=== PATIENT | female | born 1950 | race Caucasian/White ===

== ENCOUNTER 2020-04-22 09:23 | Outpatient (CLI) | payer OTHER, SELFPAY ==
--- NOTE | ~2020-04-22 | MM_ITS ---
EXAMINATION: MM screening [facility] HISTORY: Screening mammogram TECHNIQUE: Craniocaudal and mediolateral oblique 3-D tomosynthesis images were obtained and synthetic 2-D images were generated. CAD analysis was submitted and interpreted. COMPARISON: 11/25/2017, 09/14/2016, 08/15/2015 bilateral digital screening mammogram examinations BREAST PARENCHYMAL COMPOSITION: There are scattered areas of fibroglandular density. FINDINGS: There is no evidence of suspicious mass, calcification, or architectural distortion to sugg est malignancy in either breast. There has been no suspicious interval change. IMPRESSION: 1. No mammographic evidence of malignancy. 2. Recommend routine screening mammography in one year. BI-RADS Category 1: Negative Reviewed, dictated and finalized at location A.
== END 2020-04-22 09:24 | disposition home or self-care (01) ==
PROVIDERS: PCP Internal Medicine; Visit Provider Obstetrics & Gynecology
DX: Z12.31 Encounter for screening mammogram for malignant neoplasm of breast (principal)
CPT/HCPCS: 77063; 77067

== ENCOUNTER 2020-06-07 10:07 | Outpatient (CLI) | payer OTHER, SELFPAY ==
[2020-06-07 10:54] LABS: Anion Gap 8 mmol/L (8-16); Blood Urea Nitrogen 26 mg/dL (7-17); CRP 0.8 mg/dL (<1.0); Calcium 9.4 mg/dL (8.4-10.2); Carbon Dioxide 28 mmol/L (22-30); Chloride 103 mmol/L (98-107); Cholesterol 220 mg/dL (0-200); Estimated Glomerular Filt Rate > 60; Glucose 107 mg/dL (65-105); HDL Direct 34 mg/dL; Potassium 4.6 mmol/L (3.4-5.0); Rheumatoid Factor < 8.6 IU/ML (<12); Sodium 139 mmol/L (137-145); Triglycerides 212 mg/dL (<150)
[2020-06-07 11:03] LABS: LDL Cholesterol Direct 146 mg/dL
[2020-06-07 11:37] LABS: Vitamin D 25 Hydroxy 27.3 ng/mL
== END 2020-06-07 10:08 | disposition home or self-care (01) ==
LOC: ANHLAB 10:08
PROVIDERS: PCP Internal Medicine; Visit Provider Internal Medicine
DX: M19.90 Unspecified osteoarthritis, unspecified site (principal); Z13.6 Encounter for screening for cardiovascular disorders; E78.5 Hyperlipidemia, unspecified; M19.041 Primary osteoarthritis, right hand; M19.042 Primary osteoarthritis, left hand
CPT/HCPCS: 36415; 80048; 80061; 82306; 86140; 86430

== ENCOUNTER 2021-01-12 09:28 | Outpatient (CLI) | payer OTHER, SELFPAY ==
[2021-01-12 10:05] LABS: Anion Gap 6 mmol/L (8-16); Blood Urea Nitrogen 19 mg/dL (7-17); Calcium 9.9 mg/dL (8.4-10.2); Carbon Dioxide 30 mmol/L (22-30); Chloride 107 mmol/L (98-107); Cholesterol 264 mg/dL (0-200); Estimated Glomerular Filt Rate 55; Glucose 121 mg/dL (65-105); HDL Direct 49 mg/dL; Potassium 4.3 mmol/L (3.4-5.0); Sodium 143 mmol/L (137-145); Triglycerides 104 mg/dL (<150)
[2021-01-12 10:15] LABS: LDL Cholesterol Direct 174 mg/dL
[2021-01-12 10:45] LABS: Vitamin D 25 Hydroxy 48.7 ng/mL
== END 2021-01-12 09:29 | disposition home or self-care (01) ==
PROVIDERS: PCP Internal Medicine; Visit Provider Internal Medicine
DX: E78.5 Hyperlipidemia, unspecified (principal); E55.9 Vitamin D deficiency, unspecified; I10 Essential (primary) hypertension
CPT/HCPCS: 36415; 80048; 80061; 82306

== ENCOUNTER 2021-05-19 08:40 | Outpatient (CLI) | payer OTHER, SELFPAY ==
--- NOTE | ~2021-05-19 | MM_ITS ---
EXAMINATION: MM screening [facility] HISTORY: Screening TECHNIQUE: Craniocaudal and mediolateral oblique 3-D tomosynthesis images were obtained and synthetic 2-D images were generated. CAD analysis was submitted and interpreted. COMPARISON: Comparison to multiple prior studies sequentially, with oldest reviewed study dated 07/26. BREAST PARENCHYMAL COMPOSITION: There are scattered areas of fibroglandular density. FINDINGS: There is no evidence of suspicious mass, calcification, or architectural distortion to sugg est malignancy in either breast. There has been no suspicious interval change. IMPRESSION: 1. No mammographic evidence of malignancy. 2. Recommend routine screening mammography in one year. BI-RADS Category 1: Negative Reviewed, dictated and finalized at location A.
== END 2021-05-19 08:41 | disposition home or self-care (01) ==
LOC: ANHIMG 08:42
PROVIDERS: PCP Internal Medicine; Visit Provider Nurse Practitioner
DX: Z12.31 Encounter for screening mammogram for malignant neoplasm of breast (principal)
CPT/HCPCS: 77063; 77067

== ENCOUNTER 2021-08-23 09:43 | Outpatient (CLI) | payer OTHER, SELFPAY ==
[2021-08-23 10:54] LABS: Alanine Aminotransferase 21 U/L (4-35); Albumin Level 4.7 g/dL (3.5-5.1); Alkaline Phosphatase 100 U/L (38-126); Anion Gap 10 mmol/L (8-16); Aspartate Amino Transferase 31 U/L (14-36); Bilirubin,Total 0.8 mg/dL (0.2-1.3); Blood Urea Nitrogen 21 mg/dL (7-17); Carbon Dioxide 26 mmol/L (22-30); Chloride 106 mmol/L (98-107); Cholesterol 255 mg/dL (0-200); Estimated Glomerular Filt Rate 55; Glucose 119 mg/dL (65-110); HDL Direct 46 mg/dL; Potassium 4.4 mmol/L (3.4-5.0); Sodium 142 mmol/L (137-145); Triglycerides 134 mg/dL (<150)
[2021-08-23 11:05] LABS: LDL Cholesterol Direct 161 mg/dL
[2021-08-23 11:39] LABS: Vitamin D 25 Hydroxy 94.3 ng/mL
== END 2021-08-23 09:44 | disposition home or self-care (01) ==
LOC: ANHLAB 09:45
PROVIDERS: PCP Internal Medicine; Visit Provider Nurse Practitioner
DX: E78.5 Hyperlipidemia, unspecified (principal)
CPT/HCPCS: 36415; 80053; 80061; 82306

== ENCOUNTER 2022-03-12 10:03 | Outpatient (CLI) | payer OTHER, SELFPAY ==
[2022-03-12 10:42] LABS: Alanine Aminotransferase 18 U/L (6-35); Albumin Level 4.2 g/dL (3.5-5.1); Alkaline Phosphatase 99 U/L (38-126); Anion Gap 7 mmol/L (8-16); Aspartate Amino Transferase 24 U/L (14-36); Bilirubin,Total 0.6 mg/dL (0.2-1.3); Blood Urea Nitrogen 19 mg/dL (7-17); Calcium 9.2 mg/dL (8.4-10.2); Carbon Dioxide 25 mmol/L (22-30); Chloride 107 mmol/L (98-107); Cholesterol 238 mg/dL (0-200); Estimated Glomerular Filt Rate > 60; Glucose 128 mg/dL (65-110); HDL Direct 45 mg/dL; Sodium 139 mmol/L (137-145); Triglycerides 71 mg/dL (<150)
[2022-03-12 10:53] LABS: LDL Cholesterol Direct 149 mg/dL
[2022-03-12 11:03] LABS: Vitamin D 25 Hydroxy 62.8 ng/mL
[2022-03-12 11:16] LABS: Hemoglobin A1C 6.2 % (<5.7)
== END 2022-03-12 10:04 | disposition home or self-care (01) ==
LOC: ANHLAB 10:05
PROVIDERS: PCP Internal Medicine; Visit Provider Internal Medicine
DX: E78.5 Hyperlipidemia, unspecified (principal); R73.02 Impaired glucose tolerance (oral); Z13.21 Encounter for screening for nutritional disorder
CPT/HCPCS: 36415; 80053; 80061; 82306; 83036

== ENCOUNTER 2022-06-25 08:23 | Outpatient (CLI) | payer OTHER, SELFPAY ==
--- NOTE | ~2022-06-25 | MM_ITS ---
EXAMINATION: MM screening [facility] HISTORY: Screening mammogram TECHNIQUE: Craniocaudal and mediolateral oblique 3-D tomosynthesis images were obtained and synthetic 2-D images were generated. CAD analysis was submitted and interpreted. COMPARISON: 05/19/2021, 04/22/2020 BREAST PARENCHYMAL COMPOSITION: There are scattered areas of fibroglandular density. FINDINGS: There is no suspicious mass, calcification, or architectural distortion to suggest malignan cy in either breast. There has been no suspicious interval change. IMPRESSION: 1. No mammographic evidence of malignancy. 2. Recommend routine screening mammography in one year. BI-RADS Category 1: Negative Reviewed, dictated and finalized at location A.
== END 2022-06-25 08:24 | disposition home or self-care (01) ==
LOC: ANHIMG 08:26
PROVIDERS: PCP Internal Medicine; Visit Provider Nurse Practitioner Obstetrics & Gynecology
DX: Z12.31 Encounter for screening mammogram for malignant neoplasm of breast (principal)
CPT/HCPCS: 77063; 77067

== ENCOUNTER 2022-08-21 11:47 | Outpatient (CLI) | payer OTHER, SELFPAY ==
[2022-08-21 12:12] LABS: Alanine Aminotransferase 22 U/L (6-35); Albumin Level 4.5 g/dL (3.5-5.1); Alkaline Phosphatase 101 U/L (38-126); Anion Gap 15 mmol/L (8-16); Aspartate Amino Transferase 26 U/L (14-36); Bilirubin,Total 0.9 mg/dL (0.2-1.3); Blood Urea Nitrogen 26 mg/dL (7-17); Calcium 9.4 mg/dL (8.4-10.2); Carbon Dioxide 27 mmol/L (22-30); Chloride 101 mmol/L (98-107); Cholesterol 240 mg/dL (0-200); Estimated Glomerular Filt Rate 40; Glucose 117 mg/dL (65-110); HDL Direct 42 mg/dL; Sodium 143 mmol/L (137-145); Triglycerides 150 mg/dL (<150)
[2022-08-21 12:19] LABS: Hemoglobin A1C 6.7 % (<5.7)
[2022-08-21 12:22] LABS: LDL Cholesterol Direct 150 mg/dL
== END 2022-08-21 11:48 | disposition home or self-care (01) ==
LOC: ANHLAB 11:48
PROVIDERS: PCP Internal Medicine; Visit Provider Internal Medicine
DX: E78.5 Hyperlipidemia, unspecified (principal); R73.02 Impaired glucose tolerance (oral)
CPT/HCPCS: 36415; 80053; 80061; 83036

== ENCOUNTER 2022-10-23 11:00 | Outpatient (CLI) | payer OTHER, SELFPAY ==
[2022-10-23 11:25] LABS: Alanine Aminotransferase 20 U/L (6-35); Albumin Level 4.3 g/dL (3.5-5.1); Alkaline Phosphatase 90 U/L (38-126); Aspartate Amino Transferase 23 U/L (14-36); Bilirubin,Total 0.9 mg/dL (0.2-1.3); Cholesterol 170 mg/dL (0-200); HDL Direct 45 mg/dL; Triglycerides 103 mg/dL (<150)
[2022-10-23 11:37] LABS: LDL Cholesterol Direct 87 mg/dL
== END 2022-10-23 11:01 | disposition home or self-care (01) ==
LOC: ANHLAB 11:01
PROVIDERS: PCP Internal Medicine; Visit Provider Internal Medicine
DX: E78.5 Hyperlipidemia, unspecified (principal); Z79.899 Other long term (current) drug therapy
CPT/HCPCS: 36415; 80061; 80076

== ENCOUNTER 2024-01-24 09:41 | Outpatient (CLI) | payer OTHER, SELFPAY ==
--- NOTE | ~2024-01-24 | MM_ITS ---
EXAMINATION: MM screening [facility] HISTORY: Screening mammogram TECHNIQUE: Craniocaudal and mediolateral oblique 3-D tomosynthesis images were obtained and synthetic 2-D images were generated. CAD analysis was submitted and interpreted. COMPARISON: 06/25/2022, 05/19/2021 bilateral screening mammogram examinations BREAST PARENCHYMAL COMPOSITION: There are scattered areas of fibroglandular density. FINDINGS: There is no evidence of suspicious mass, calcification, or architectural distortion to sugg est malignancy in either breast. There has been no suspicious interval change. IMPRESSION: 1. No mammographic evidence of malignancy. 2. Recommend routine screening mammography in one year. BI-RADS Category 1: Negative Reviewed, dictated and finalized at location A.
== END 2024-01-24 09:42 | disposition home or self-care (01) ==
LOC: ANHIMG 09:43
PROVIDERS: PCP Nurse Practitioner Family; Visit Provider Nurse Practitioner Obstetrics & Gynecology
DX: Z12.31 Encounter for screening mammogram for malignant neoplasm of breast (principal)
CPT/HCPCS: 77063; 77067

== ENCOUNTER 2025-01-28 16:17 | Outpatient (CLI) | payer OTHER, SELFPAY ==
--- NOTE | ~2025-01-28 | MM_ITS ---
EXAMINATION: MM screening dorothy BI w lacho HISTORY: Screening TECHNIQUE: Craniocaudal and mediolateral oblique 3-D tomosynthesis images were obtained and synthetic 2-D images were generated. CAD analysis was submitted and interpreted. COMPARISON: Comparison to multiple prior studies sequentially, with oldest reviewed study dated 08/28. BREAST PARENCHYMAL COMPOSITION: Not dense: There are scattered areas of fibroglandular density. FINDINGS: There is no evidence of suspicious mass, calcification, or architectural distortion to sugg est malignancy in either breast. There has been no suspicious interval change. IMPRESSION: 1. No mammographic evidence of malignancy. 2. Recommend routine screening mammography in one year. BI-RADS Category 1: Negative Reviewed, dictated and finalized at location A.
--- OUTSIDE RECORDS SUMMARY | 2025-01-28 16:20 | XMS_ITS | Referral Summary ---
Author Organization [address] [address] Care Team Providers Care Excavator Backhoe Operator Name Role Phone Jimenez Carey MD Primary Care Provider [phone] Kristin Bello NP Unavailable Encounters Date Type Department Care Team Description 12/28/2024 Telephone [facility] Primary Care at [address] [address] Jimenez Carey MD Forms Request 12/27/2024 9:45 AM RETENTION MANAGER Office Visit [facility] Convenient Care at [address] [address] Linda Smith NP Sciatic leg pain (Primary Dx); Elevated blood pressure reading in office with diagnosis of hypertension 12/16/2024 Telephone [facility] Primary Care at [address] [address] Jimenez Carey MD 01/12/[address] Carey cancelled 11/04/2024 Telephone [facility] Gastroenterology at [address] [place] [address] Dennis Uriarte from Last 3 Months Allergies Active Allergy Reactions Criticality Noted Date Comments Erythromycin Palpitations,Nausea & Vomiting Low Penicillins Palpitations Low 04/20/2024 Sulfa Itching Low 04/20/2024 Medications polyethylene glycol (MIRALAX) 17 gram/dose bulk powder Use entire bottle of 255 grams of miralax for Colon prep as directed by office. 8 Active bisacodyl EC (DULCOLAX EC) 5 mg EC tabletIndicatio ns:constipation Take 1 tablet (5 mg total) by mouth daily as needed for constipation 4 tablet [address] (PROTONIX) 20 mg EC tablet Take 1 tablet (20 mg total) by mouth every morning 90 tablet 1 4 Active losartan (COZAAR) 100 mg tablet Take 1 tablet (100 mg total) by mouth daily 90 tablet 1 4 Active hydroCHLOROthia zide (HYDRODIURIL) 25 mg tablet Take 1 tablet (25 mg total) by mouth daily 90 tablet 1 4 Active atorvastatin (LIPITOR) 20 mg tablet Take 1 tablet (20 mg total) by mouth daily 90 tablet 1 4 Active methylPREDNISol one (Medrol, Abisai,) 4 mg DosepackIndicat ions:Sciatic leg pain follow package directions 1 packet 5 Active Active Problems Problem Noted Date Diagnosed Date History of colon polyps 09/08/2024 Screening for colon cancer 09/08/2024 Pessary maintenance 07/15/2024 Assessment & Plan (07/15/2024 12:33 PM CDT): Placed 2 years ago. 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 Overview (07/15/2024): Bradycardia;Recorded Elsewhere: No Location: [facility] Source: EHR Chronic: N Practice ID: [id number] Billable Time: 02:25:30 PM Overweight 07/26/2014 Overview (07/15/2024): Overweight;Recorded Elsewhere: No Location: [facility] Source: EHR Chronic: N Practice ID: [id number] Billable Time: 11:30:00 AM Leukopenia 01/03/2012 Overview (07/15/2024): LEUKOCYTOPENIA NOS;Practice ID: [id number] Microscopic hematuria 01/03/2012 Overview (07/15/2024): HEMATURIA MICROSCOPIC;Practice ID: [id number] Proteinuria 01/03/2012 Overview (07/15/2024): Proteinuria;Practice ID: [id number] Hypertension Assessment & Plan (07/15/2024 12:32 PM CDT): BP increased in office, patient taking HCTZ and Losartan. Home BP's run more in the 128/80's range. Patient to keep home BP log and return this in 1 week. Updated labs ordered also. Hyperlipidemia Assessment & Plan (07/15/2024 12:31 PM CDT): Continues Lipitor, no side effects reported. Updated labs ordered. GERD (gastroesophageal reflux disease) Resolved Problems Problem Noted Date Diagnosed Date Resolved Date Elevated blood-pressure read ing without diagnosis of hypertension 12/17/2017 07/15/2024 Overview (07/15/2024): Elevated blood-pressure reading, without diagnosis of hypertension;Recorded Elsewhere: No Location: [facility] Source: EHR Chronic: N Practice ID: [id number] Billable Time: 10:15:00 AM Overweight with body mass in dex (BMI) 25.0-29.9 12/17/2017 07/15/2024 Overview (07/15/2024): Body mass index (BMI) 29.0-29.9, adult;Recorded Elsewhere: No Location: [facility] Source: EHR Chronic: N Practice ID: [id number] Billable Time: 10:15:00 AM Urinary tract infectious disease 01/03/2012 07/15/2024 Overview (07/15/2024): Urinary Tract Infection;Recorded Elsewhere: No Location: [facility] Source: EHR Chronic: N Practice ID: [id number] Billable Time: 03:41:00 PM Immunizations Immunization Administration Dates Next Due Hep B Vaccine 06/10/2013,01/07/2013,12/05/2012 Influenza, Quad, Adjuvantate d, Intramuscular 08/27/2022,08/29/2021 Influenza, Quadrivalent, Raina l Culture-based MDCK, Antibiotic Free, Intramuscular 08/06/2019 Influenza, Quadrivalent, Hig h Dose, Preservative Free, Intrr 10/27/2020 Influenza, Quadrivalent, Spl it, Preservative Free, Intramuscular 08/08/2023,07/17/2018,08/01/2017 Influenza, Trivalent, High D ose, Split, Preservative Free, Intramuscular 06/17/2024 Influenza, Trivalent, IM (MDV) 08/31/2015,2012,01/07/2013 Influenza, Trivalent, Preser vative Free, Intramuscular 09/02/2016 RSV Vaccine, Pref, Recombina nt, Subunit, Adjuvanted, PF, IM (Arexvy) 06/17/2024 Tdap 04/02/2023 ZOSTER Recombinant 06/17/2024 Social History Tobacco Use Types Packs/Day Years Used Date Smoking Tobacco: Former Cigarettes Smokeless Tobacco: Never Tobacco Cessation:Counseling Given: Not Answered AUDIT-C Answer Date Recorded Q1: How often do you have a drink containing alc ohol? Never 07/15/2024 Average Number of Drinks Not on file 024 Frequency of Binge Drinking Not on file 06/28 PHQ-2 Answer Date Recorded PHQ-2 Total Score (If total score is 3 or more points, staff should administer the PHQ-9) 0 07/15/2024 Comments Unknown Sex and Gender Information Value Date Recorded Sex Assigned at Not on file Legal Sex Female 5:54 AM RETENTION MANAGER Gender Identity Not on file Sexual Orientation Not on file Last Filed Vital Signs Vital Sign Reading Time Taken Comments Blood Pressure 180/78 12/27/2024 9:47 AM RETENTION MANAGER Pulse 76 12/27/2024 9:47 AM RETENTION MANAGER Temperature 36.6 C (97.9 F) 12/27/2024 9:47 AM RETENTION MANAGER Respiratory Rate 16 12/27/2024 9:47 AM RETENTION MANAGER Oxygen Saturation 94% 12/27/2024 9:47 AM RETENTION MANAGER Inhaled Oxygen Concentration - - Weight 75.3 kg (166 lb) 12/27/2024 9:47 AM RETENTION MANAGER Height 165.1 cm (5' 5 ) 12/27/2024 9:47 AM RETENTION MANAGER Body Mass Index 27.62 12/27/2024 9:47 AM RETENTION MANAGER Plan of Treatment Not on file Procedures Procedure Name Priority Date/Time Associated Diagnosis Comments HEPATITIS C ANTIBODY Routine 07/15/2024 4:00 PM CDT Encounter for hepatitis C screening test for low risk patient COLONOSCOPY Routine 03/20/2018 9:14 AM CDT from Last 3 Months or Most Recently Relevant to Health Maintenance Results * Hepatitis C antibody Blood (07/15/2024 4:00 PM CDT) Hep C Ab Nonreactive Nonreactive Comment: Interpretive Data Nonreactive: Antibodies to HCV not detected. Does NOT exclude the possibility of recent exposure to HCV. Equivocal: Equivocal for HCV antibodies. Supplemental molecular testing will be automatically performed to determine infection status in accordance with current CDC screening recommendations. Reactive: Positive for HCV antibodies. This may represent current or past HCV infection. Supplemental molecular testing will be automatically performed to determine current infection status in accordance with current CDC screening recommendations. Interpretive data was last revised on 2020. Blood 07/15/2024 4:00 PM CDT 07/15/2024 8:14 PM CDT Kristin Bello NP LAB MICROBIOLOGY - GENERAL ORDER TULIO Final Result [facility] [address] [place] [address] * COLONOSCOPY (03/20/2018 9:14 AM CDT) Historical Provider HEALTH MAINTENANCE Final Result from Last 3 Months or Most Recently Relevant to Health Maintenance Insurance [facility] [employer] [facility] Care Teams Excavator Backhoe Operator Relationship Specialty Start Date End Date Jimenez Carey MD [address] [facility] [address] [place] [address] PCP - General Family Medicine 07/15/24 Kristin Bello NP [address] [place] [address] Nurse Practitioner Family Medicine 07/15/[address] [facility] 07/15/24
--- OUTSIDE RECORDS SUMMARY | 2025-01-28 16:20 | XMS_ITS | Encounter Summary ---
Author Organization [facility] Healthcare Address [address] [place] [address] Care Team Providers Care Gear Cutter Name Role Phone Jimenez Carey MD Primary Care Provider [phone] Kristin Bello NP Unavailable Reason for Visit * Reason Onset Date Comments Forms Request 12/28/2024 Encounter Details Date Type Department Care Team (Late st Contact Info) Description 12/28/2024 Telephone [facility] Primary Care at [address] [address] Jimenez Carey MD [address] [place] [address] [address] [place] [address] Forms Request Social History Tobacco Use Types Packs/Day Years Used Date Smoking Tobacco: Former Cigarettes Smokeless Tobacco: Never AUDIT-C Answer Date Recorded Q1: How often [...] on file Legal Sex Female 5:54 AM INVENTORY ANALYST Gender Identity Not on file Sexual Orientation Not on file documented as of this encounter Miscellaneous Notes * Telephone Encounter - Minda Crespo - 12/28/2024 10:08 AM CST Forms Request Form requested: Other Form Form Name: Work notes/return to work notes Date needed: 12/30/24 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 Patient How to return form to patient:pickup at practice Additional Comments: Patient seen at convenient care on Saturday12/27/24 and diagnosed with Sciatica pain . Wanting to know if Dr. Carey can give her a work note? Patient is feeling better, however it is still slightly painful and she is wanting to take an additional day off. Needing work note to return 12/31 if possible. Patient will also reach out to convenient care Does message need to be routed? Yes-Action Needed NTORY ANALYST documented in this encounter Plan of Treatment Not on file documented as of this encounter Visit Diagnoses Not on filedocumented in this encounter Care Teams Gear Cutter Relationship Specialty Start Date End Date Jimenez Carey MD [address] [place] [address] PCP - General Family Medicine 07/15/24 Kristin Bello NP [address] [place] [address] Nurse Practitioner Family Medicine 07/15/24 [facility] 07/15/24 documented as of this encounter
--- OUTSIDE RECORDS SUMMARY | 2025-01-28 16:20 | XMS_ITS | Clinical Summary ---
Author Organization [facility] [address] Address [address] [place] [address] Care Team Providers Care Client Success Specialist Name Role Phone Jimenez Carey MD Primary Care Provider [phone] Kristin Bello NP Unavailable Allergies Active Allergy Reactions Criticality Noted Date [...] 2 years ago. 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 Overview (07/15/2024): Bradycardia;Recorded Elsewhere: No Location: [facility] Source: EHR Chronic: N Practice ID: [id number] Billable Time: 02:25:30 PM Overweight 07/26/2014 Overview (07/15/2024): Overweight;Recorded Elsewhere: No Location: [facility] Source: EHR Chronic: N Practice ID: [id number] [...] without diagnosis of hypertension;Recorded Elsewhere: No Location: [facility] Source: EHR Chronic: N Practice ID: [id number] Billable Time: 10:15:00 AM Overweight with body mass in dex (BMI) 25.0-29.9 12/17/2017 07/15/2024 Overview (07/15/2024): Body mass index (BMI) 29.0-29.9, adult;Recorded Elsewhere: No Location: [facility] Source: EHR Chronic: N Practice ID: 0001 Billable Time: 10:15:00 AM Urinary tract infectious disease 01/03/2012 07/15/2024 Overview (07/15/2024): Urinary Tract Infection;Recorded Elsewhere: No Location: [facility] Source: EHR Chronic: N Practice ID: [id number] Billable Time: 03:41:00 PM Encounters Date Type Department Care Team Description 12/28/2024 Telephone [facility] Primary Care at [address] [address] Jimenez Carey MD Forms Request 12/27/2024 9:45 AM FORENSIC DOCUMENT EXAMINER Office Visit [facility] Convenient Care at [address] [address] Linda Smith NP Sciatic leg pain (Primary Dx); Elevated blood pressure reading in office with diagnosis of hypertension 12/16/2024 Telephone [facility] Primary Care at [address] [address] Jimenez Carey MD 01/12/[address] Carey cancelled 11/04/2024 Telephone [facility] Gastroenterology at [address] [place] [address] Dennis Uriarte from Last 3 Months Immunizations Immunization Administration Dates Next Due Hep [...] (Arexvy) 06/17/2024 Tdap 04/02/2023 ZOSTER Recombinant 06/17/2024 Surgical History Surgery Date Site/Laterality Comments CHOLECYSTECTOMY 08/2023 Medical History Medical History Date Comments Hypertension Hyperlipidemia GERD (gastroesophageal reflux disease) Colon polyps Elevated blood-pressure read ing without diagnosis of hypertension 12/17/2017 Elevated blood-pressure read ing, without diagnosis of hypertension;Recorded Elsewhere: No Location: [facility] Source: EHR Chronic: N Practice ID: [id number] Billable Time: 10:15:00 AM Family History Medical History Relation Name Comments Esophageal cancer Brother Stomach cancer Brother Heart disease Father Diabetes Maternal Grandmother Heart disease Mother Relation Name Status Comments Brother Father Maternal Grandmother Mother Social History Tobacco Use Types Packs/Day Years [...] on file Legal Sex Female 5:54 AM FORENSIC DOCUMENT EXAMINER Gender Identity Not on file Sexual Orientation Not on file Obstetrics History Last Filed Vital Signs Vital Sign Reading Time Taken Comments Blood Pressure 180/78 12/27/2024 9:47 AM FORENSIC DOCUMENT EXAMINER Pulse 76 12/27/2024 9:47 AM FORENSIC DOCUMENT EXAMINER Temperature 36.6 C (97.9 F) 12/27/2024 9:47 AM FORENSIC DOCUMENT EXAMINER Respiratory Rate 16 12/27/2024 9:47 AM FORENSIC DOCUMENT EXAMINER Oxygen Saturation 94% 12/27/2024 9:47 AM FORENSIC DOCUMENT EXAMINER Inhaled Oxygen Concentration - - Weight 75.3 kg (166 lb) 12/27/2024 9:47 AM FORENSIC DOCUMENT EXAMINER Height 165.1 cm (5' 5 ) 12/27/2024 9:47 AM FORENSIC DOCUMENT EXAMINER Body Mass Index 27.62 12/27/2024 9:47 AM FORENSIC DOCUMENT EXAMINER Plan of Treatment Health Maintenance Due Date Last Done Comments Pneumococcal vaccine 65+ (1 of 1 - PCV) 2001 Well Visit 65+ 2016 Covid-19 Vaccine (2023-2 5 season) 2024 11/01/2022, 02/03/2022, 09/01/2021, Additional history exists Zoster Vaccine (2 of 2) 08/12/2024 06/17/2024 Breast Cancer Screening-Mammogram 12/26/2024 024 Depression Screening 07/15/2025 07/15/2024 Fall Risk Assessment 07/15/2025 07/15/2024 Osteoporosis Screening-Bone Density Scan 07/09/2026 07/09/2024 Colon Cancer Screening-Colonoscopy 07/15/20292018, 03/20/2018 DTaP/Tdap/Td Vaccine (2 - Td or Tdap) 04/02/2033 04/02/2023 Hepatitis B Screening Completed 06/10/2013 , 01/07/2013, 12/05/2012 Influenza Vaccine Completed 06/17/2024, , 08/27/2022, Additional history exists Hepatitis C Screening Completed 07/15/2024 Procedures Procedure Name Priority Date/Time Associated Diagnosis Comments HEPATITIS C ANTIBODY Routine 07/15/2024 4:00 PM CDT Encounter for hepatitis C screening test for low risk patient HM COLONOSCOPY Routine 03/20/2018 9:14 AM CDT from [...] MICROBIOLOGY - GENERAL ORDER TULIO Final Result [facility] [address] [place] [address] * HM COLONOSCOPY (03/20/2018 9:14 AM CDT) Historical Provider HEALTH MAINTENANCE Final Result from Last 3 Months or Most Recently Relevant to Health Maintenance Insurance [facility] [employer] [facility] [employer] Care Teams Client Success Specialist Relationship Specialty Start Date End Date Jimenez Carey MD [address] [facility] [address] [place] [address] PCP - General Family Medicine 07/15/24 Kristin Bello NP [address] [facility] [address] [place] [address] Nurse Practitioner Family Medicine 07/15/24 [facility] 07/15/24
--- OUTSIDE RECORDS SUMMARY | 2025-01-28 16:20 | XMS_ITS | Clinical Summary ---
Author Organization [facility] Address [address] [place], [address] [address] Phone Care Team Providers Care Wet Machine Cutter Name Role Phone Martin Fong MD Primary Care Provider [phone] Jane Asif MD Unavailable [phone] Medications polyethylene glycol (MIRALAX) Powder Use entire bottle of 255 grams of miralax for Colon prep as directed by office. 255 g 01/13/2018 Active Social History Tobacco Use Types Packs/Day Years Used Date Smoking Tobacco: Never Assessed Comments Unknown Sex and Gender Information Value Date Recorded Sex Assigned at Not on file Legal Sex Female 7:35 PM CDT Gender Identity Not on file Sexual Orientation Not on file Plan of Treatment Health Maintenance Due Date Last Done Comments DEXA Bone Density 1950 Hepatitis C Virus (HCV) Screening 1950 TdaP Immunization 1950 Cologuard 2001 Immunochemical Fecal Occult Blood 2001 Mammogram 2001 Pneumococcal Immunization (5 0+ years) (1 of 1 - PCV) 2001 Zoster Immunization (1 of 2) 2001 Influenza Immunization (#1) 2024 SARS-COV-2 Immunization (1 - 2023- season) 2024 Respiratory Syncytial Virus (RSV) Immunization (Adult) (1 - 1-dose 75+ series) 2026 Colonoscopy 03/20/2028 03/20/2018 Colorectal Cancer Screening 03/20/2028 03/20/2018 Hepatitis B Immunization Aged Out No longer eligible based on patient's age to complete this topic Meningococcal Immunization (ACWY) Aged Out No longer eligible based on patient's age to complete this topic Rotavirus Immunization Aged Out No lo nger eligible based on patient's age to complete this topic Procedures Procedure Name Priority Date/Time Associated Diagnosis Comments HM COLONOSCOPY Routine 03/20/2018 from Last 3 Months or Most Recently Relevant to Health Maintenance Results * HM COLONOSCOPY (03/20/2018) Nahun Alexis DO PROCEDURE/MINOR SURGICAL ORDERA BLES Final Result from Last 3 Months or Most Recently Relevant to Health Maintenance Care Teams Wet Machine Cutter Relationship Specialty Start Date End Date Martin Fong MD [address] [place] [address] PCP - General Internal Medicine 01/01/18 Jane Asif MD [address] [place] [address] Family Medicine 01/01/18
--- OUTSIDE RECORDS SUMMARY | 2025-01-28 16:20 | XMS_ITS | Data Portability ---
Author Organization 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 Patient will come back in a year unless there are new symptoms. Not available 11/27/2024 10:22:30 Plan of Treatment Reminders Order Date Submit Date Provider Last Modified By Organization Details Last Modified Time Details Appointments PESSARY 2024 01:00P M OVIDIO BLEDSOE NP Not available Not available Not available Lab None recorded. Referral None recorded. Procedures None recorded. Surgeries None recorded. Imaging MAMMO, screening , bilateral 2023 [address] [facility], [address], [address], [place], [address], 09/17/2024 10:39:05 Medication Orders None recorded. Patient TargetsNo targets recorded. Patient InstructionsNo instructions recorded. Reason for Referral None Reported. Problems Name Problem SNOMED Code Status Onset Date Resolution Date Notes Provider Name and Address Organization Details Recorded Time Urinary tract infectio us disease 64342001 Completed 201106/03/2021 Urinary Tract Infectio n;Record ed Elsewher e: No [facility] EHR [facility]er braxton: N Practi ce ID: 0001 Crow lable Time: 03:41:00 PM Lakshmi Gorman null, [facility] 1 09:49:11 Adult health examinat ion Completed 201106/03/2021 Routine Medical Exam;Rec orded Elsewher e: No [facility]: EHR [employer] braxton: N Eloyti ce ID: 0001 Crow lable Time: 09:30:00 AM Lakshmi benton, [facility] 1 09:48:31 Speciali zed medical examinat ion Completed 201106/03/2021 Gynecolo gical Examinat ion;Ken rded Elsewher e: No Locat ion: [facility] S ource: EHR [employer]berry Grower braxton: N Eloyti ce ID: 0001 Crow lable Time: 09:30:00 AM Lakshmi Yanestz chetan, [facility] 1 09:49:08 Screenin g for malignan t neoplasm of cervix Completed 201206/03/2021 Screenin g for malignan t neoplasm s of the cervix;R ecorded Elsewher e: No [facility]ce: EHR [employer] braxton: N Eloyti ce ID: 0001 Crow lable Time: 11:30:00 AM Lakshmi benton, [facility] 1 09:48:[address] Concept Completed 201706/03/2021 Encntr for obstetrician and gynaecologist exam (general ) (routine ) w/o abn findings ;Recorde d Elsewher e: No Locat ion: [facility] S ource: EHR [employer]berry [employer]er braxton: N Eloyti ce ID: 0001 Crow lable Time: 10:15:00 AM Lakshmi benton, [facility] 1 09:49:06 Screenin g for osteopor osis Completed 201306/03/2021 Special screenin g for osteopor osis;Rec orded Elsewher e: No Locat ion: [facility] S ource: EHR [employer] braxton: N Eloyti ce ID: 0001 Crow lable Time: 10:28:49 AM Lakshmi benton, [facility] 09:49:02 Body mass index 25-29 - overwe ht [id number] Completed 201706/03/2021 Body mass index (BMI) 29.0-29. 9, adult;Re corded Elsewher e: No [facility] N Practi ce ID: 0001 Crow lable Time: 10:15:00 AM Lakshmi Gorman [facility], [facility] 09:48:[address] Concept Completed 201706/03/2021 Encntr for general adult medical exam w/o abnormal findings ;Recorde d Elsewher e: No [facility] N Eloyti ce ID: 0001 Crow lable Time: 10:15:00 AM Lakshmi benton, [facility] 09:49:04 Screenin g for malignan t neoplasm of rectum Completed 201206/03/2021 Screenin g for malignan t neoplasm s of the rectum;P ractice ID: 0001 Lakshmi Gorman chetan, [facility] 09:49:00 [facility] ht [id number] Completed 201306/03/2021 [facility] ht;Recor ded Elsewher e: No [facility]ce: EHR [employer] braxton: N Practi ce ID: 0001 Crow lable Time: 11:30:00 AM Lakshmi Gorman chetan, [facility] 09:48:54 Conducti on disorder of the heart [id number] Completed 201306/03/2021 Bradycar karena;Ken rded Elsewher e: No Locat ion: [facility] S ource: EHR [employer] braxton: N Practi ce ID: 0001 Crow lable Time: 02:25:30 PM Lakshmi Gorman chetan, [facility] 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 09:48:48 Leukopen ia [id number] Completed 201106/03/2021 LEUKOCYT OPENIA NOS;Prac nicolle ID: 0001 Lakshmi Gorman null, [facility] 09:48:50 Proteinu marino [id number] Completed 201106/03/2021 Proteinu marino;Prac nicolle ID: 0001 Lakshmivarinder Gorman chetan, [facility] 09:48:56 Microsco pic hematuri a [id number] Completed 201106/03/2021 HEMATURI A MICROSCO PIC;Prac nicolle ID: 0001 Lakshmi Gorman null, [facility] 09:48:52 Cystocel e [id number] Active 2020 Dottie Marcos RASHI- [address], [place], [address], [facility] 2 15:06:34 Problem Notes None recorded. Procedures Surgical History Date Name Laterality Status Provider Name and Address Organization Details Recorded Time 024 Date of Last Mammogram completed Esthela Wolff [facility] 11/30/2024 17:26:35 024 Pessary Check completed TIESHA SANTANA MD [address], [place], [address], [facility] 05/04/2024 10:16:29 024 Pessary Check completed Dottie Marcos [facility] [address], [place], [address], [facility] 11/29/2023 10:16:16 023 Cholecystectomy completed Tamika Jorgensen [facility] 11/29/2023 10:01:38 023 Pessary Check completed Dottie Marcos [facility] [address], [place], [address], [facility] 06/04/2023 14:18:15 023 Pessary Check completed Dottie Marcos [facility] [address], [place], [address], [facility] 11/07/2022 14:13:30 022 Pessary Check completed Dottie Marcos [facility] [address], [place], [address], [facility] 07/30/2022 11:09:19 022 Pessary Check completed Dottie Marcos [facility] [address], [place], [address], [facility] 05/02/2022 11:05:50 022 Pessary Check completed Dottie Marcos [facility] [address], [place], [address], [facility] 01/31/2022 15:10:34 021 Pessary Check completed Dottie Marcos [facility] [address], [place], [address], [facility] 06/03/2021 12:12:22 021 Pessary Insertion completed Dottie Marcos RASHI- [address], [place], [address], [facility] 05/12/2021 15:08:43 020 Date of Last Pap Smear completed Lakshmivarinder Gorman [facility] 06/02/2021 17:34:15 018 Date of Last Colonoscopy completed [facility] 06/04/2023 14:00:27 018 completed [facility] 06/04/2023 14:00:27 017 Most Recent Bone Density completed [facility] 06/21/2021 12:30:04 011 biopsy of breast completed Lakshmivarinder Gorman [facility] 06/06/2021 15:11:22 007 Colonoscopy completed [facility] 04/04/2020 16:23:55 Colonoscopy completed [facility] 06/21/2021 12:30:09 Imaging Results None recorded. Procedure Notes None recorded. Medical Equipment None Reported. Allergies Allergen ID Allergen Name Allergen Category Reaction Reaction Severity Criticality Documentation Date Start Date Code Code System Note Provider Name and Address Organization Details Recorded Time 911 Product containin g penicilli n (product) medicatio n Not available Not available Not available 04/04/[address] [facility] 0 16:20:59 912 Substance with sulfonami de structure and antibacte rial mechanism of action (substanc e) medicatio n Not available Not available Not available 04/04/2020 09696 8003 SNOMED Buffy Arcadia [facility] 0 16:21:05 Medications Name Sig Start Date Stop Date Status Note LastModified by Organization Details LastModified Time cyclobenz aprine 10 mg tablet TAKE 1 TABLET BY MOUTH TWICE DAILY NEEDED FOR MUSCLE SPASM 01/31 completed Not Available Not Available Not Available atorvasta tin 20 mg tablet TAKE 1 TABLET BY MOUTH DAILY active Not Available Not Available No t Available hydrocodo ne 5 mg-acetam inophen 325 mg tablet 05/04 completed Not Available Not Available Not Available amlodipin e 5 mg tablet TAKE 1 TABLET BY MOUTH DAILY 11/30 completed Not Available Not Available Not Available pantopraz ole 20 mg tablet,de layed release TAKE 1 TABLET BY MOUTH EVERY MORNING active Not Available Not Available No t Available ciproflox acin 0.3 % eye drops 06/04 completed Not Available Not Available Not Available hydrochlo rothiazid e 25 mg tablet TAKE 1 TABLET BY MOUTH DAILY active Not Available Not Available No t Available Vitamin D2 1,250 mcg (50,000 unit) capsule take 1 capsule by oral route every week 2017 active Prescrib ed Elsewher e: No Locat ion: [facility] M odify By: debbie mason DateTime : 01/18/20 18 03:20:57 PM Not Available Not Available Not Available losartan 100 mg tablet TAKE 1 TABLET BY MOUTH DAILY active Not Available Not Available No t Available nitrofura ntoin monohydra te/macroc rystals 100 mg capsule take 1 capsule (100MG) by oral route every 12 hours with food 11/30 completed Not Available Not Available Not Available ibuprofen 05/12 completed Not Available Not Available Not Available Vitamin D-3 with Aloe 05/12 completed Not Available Not Available Not Available GaviLyte- G 236 gram-22.7 4 gram-6.74 gram-5.86 gram oral solution MIX AND DRINK 4000 ML BY MOUTH ONCE FOR 1 DOSE 11/30 completed Not Available Not Available Not Available Vitals Date Recorded Body height Body mass index (BMI) Body weight Provider Name and Address Organization Details Last Updated DateTime 11/07/2022 161.93 cm 32.1 kg/m2 87142.74 g Tamika Jorgensen [facility] 11/07/2022 13:58:28 Date Recorded Systolic blood pressure Diastolic blood pressure Provider Name and Address Organization Details Last Updated DateTime 11/07/2022 122 mm[Hg] 78 mm[Hg] Dottie Marcos, [facility] [address], [place], [address], [facility] 11/07/2022 14:11:27 Date Recorded Body height Body mass index (BMI) Body weight Provider Name and Address Organization Details Last Updated DateTime 06/04/2023 161.93 cm 32.3 kg/m2 11579.77 g Esthela Wolff [facility] 06/04/2023 14:00:10 Date Recorded Systolic blood pressure Diastolic blood pressure Provider Name and Address Organization Details Last Updated DateTime 06/04/2023 128 mm[Hg] 72 mm[Hg] Dottie Marcos, [facility] [address], [place], [address], [facility] 06/04/2023 14:17:00 Date Recorded Body height Body mass index (BMI) Body weight Systolic blood pressure Diastolic blood pressure Provider Name and Address Organization Details Last Updated DateTime 11/29/2023 161.93 cm 30.4 kg/m2 96669.26 g 164 mm[Hg] 79 mm[Hg] Tamika Jorgensen [facility] 10:01:08 Date Recorded Body height Body mass index (BMI) Body weight Systolic blood pressure Diastolic blood pressure Provider Name and Address Organization Details Last Updated DateTime 05/04/2024 161.93 cm 28.6 kg/m2 08836.46 g 158 mm[Hg] 77 mm[Hg] Gi Mitchell [facility] 09:51:59 Date Recorded Body height Body mass index (BMI) Body weight Systolic blood pressure Diastolic blood pressure Provider Name and Address Organization Details Last Updated DateTime 11/30/2024 161.93 cm 30.4 kg/m2 52894.26 g 173 mm[Hg] 76 mm[Hg] Esthela Wolff [facility] 17:26:24 Social History Question Answer Notes LastModified by Organizat ion Details LastModified Time Tobacco Smoking Status Never Smoker Esther benton, [facility] 06/04/2023 13:46:14 Do You Have An Advance Directive? No Information n ot available 05/12/2021 What Is Your Level Of Alcohol Consumption? Occasional Information not available 07/30/2022 Are You Blind Or Do You Have Difficulty Seeing? No Information n ot available 05/12/2021 What Is Your Level Of Caffeine Consumption? Moderate Information not available 09/19/2021 How Much Tobacco Do You Chew? None Information not available 05/12/2021 In The 14 Days Before Symptom Onset, Have You Had Close Contact With A Laboratory-confirm ed COVID-19 While That Case Was Ill? No Information n ot available 05/12/2021 In The 14 Days Before Symptom Onset, Have You Had Close Contact With A Person Who Is Under Investigation For COVID-19 While That Person Was Ill? No Information not available 05/12/2021 Have You Been To An Area Known To Be High Risk For COVID-19? No Information not available 05/12/2021 Are You Deaf Or Do You Have Serious Difficulty Hearing? No Information not available 05/12/2021 What Type Of Diet Are You Following? STEVENGAN [email or web address] Information n ot available 11/27/2024 What Is The Highest Grade Or Level Of School You Have Completed Or The Highest Degree You Have Received? 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 No Information not available 05/12/2021 Do You Use Protection During Sex? No Information not available 05/12/2021 Do You Use Your Seat Belt Or Car Seat Routinely? Yes Information not available 05/12/2021 Do You Have Smoke And Carbon Monoxide Detectors In Your Home? Yes Information not available 05/12/2021 How Much Tobacco Do You Smoke? No Information not available 05/12/2021 Do You Feel Stressed (tense, Restless, Nervous, Or Anxious, Or Unable To Sleep At Night)? [id number] Information not available 05/12/2021 Do You Use Any Illicit Or Recreational Drugs? No Information not available 05/12/2021 Do You Use Sunscreen Routinely? No Information not available 05/12/2021 Have You Used IV Drugs? No Information not available 05/12/2021 Sex: Unknown Functional Status Question Answer Note LastModified by Organizat ion Details LastModified Time Do you have difficulty walking or climbing stairs? No Information not available 06/04/2023 Are you able to walk? YESWOREST Information not available 05/12/2021 Are you able to care for yourself? Yes Information not available 06/04/2023 Do you have difficulty dressing or bathing? No Information not available 06/04/2023 What is your exercise level? Moderate Information not available 05/12/2021 Mental Status None recorded. Family History Relationship Description Onset Age of this Age Resolved Age Notes LastModified by Organization Details LastModified Time Maternal Grandmother Diabetes mellitus [email or web address] Not available 04/04 16:21:33 Mother Disorder of coronary artery [email or web address] Not available 2024 17:02:40 Mother Congestive heart failure [email or web address] Not available 2024 17:02:40 Paternal Grandfather Cerebrovascu lar accident [email or web address] Not available 16:22:41 Father Congestive heart failure [email or web address] Not available 2024 17:02:40 Medical History Condition Response Allergies (Food, seasonal, environmental ) N Other N Breast Cancer N Drug/Latex Allergies/Reactions N Blood Transfusion N Dermatologic Disorders N Lung Disease N Defects or Inherited Disease N Breast Problem Y Gestational Diabetes N Hematologic disorders N Anesthesia Complications N History of STI N Deep Vein Thrombosis N Polycystic ovary syndrome N Anxiety Disorder N Autoimmune disease N Arthritis N Infertility N Polyps N Acid Reflux (GERD) Y History of abnormal pap N Cancer N Stroke N Varicosities N Neurologic/Epilepsy N Endometriosis N High Cholesterol Y Headaches N Fibromyalgia N Kidney Disease N Heart Problems N Kidney or Bladder Problems N Thyroid Problems N GI Problems N Eating Disorder N Anemia N Art (IVF or FET) N Psychiatric Illness N Ovarian Cancer N Diabetes N Pulmonary (TB, Asthma) N Hepatitis/Liver Disease N No Past Medical History N Eczema N Urinary Tract Infection N Abuse/Domestic Violence N Asthma N Trauma/Violence N Depression/ depression N Heart Disease N Pre-Eclampsia Y Hypertension Y Osteoporosis Y Thrombophilias N Gynecological History Statement/Question Response Abnormal Pap N Date of Last Mammogram 06/28/2024 On BCP's at Conception? N N STIs/STDs N HPV Vaccine N Current Control Method None Age at First Child 48 If Post Menopausal, Age at Menopause 56 Date of Last Colonoscopy 04/06/2018 Most Recent Bone Density 04/11/2017 Sexually Active? N Age of first menstrual cycle 14 Date of Last Pap Smear 04/05/2020 Sexual Problems? N LMP Unknown 04/06/2018 N Obstetrics History GPAL:G 2 P 2 0 0 2 Type Value Full Term 2 Living 2 Total 2 Past Encounters Encounter ID Performer Location Encounter Start Date Encounter Closed Date Diagnosis/Indication Diagnosis SNOMED-CT Code Diagnosis ICD10 Code Diagnosis Note [id number] [address] 04/05/2020 10:57:34 04/05/2020 17:00:20 Gynecologic examination 35332113 Z01.419 We reviewed current pap guidelines and she agrees and is aware no pap done today. No pap needed since >65. Last MMG 10/2017, order given. Colonoscop y 2018 wt one benign polyp per report [id number] Dottie Marcos , [facility] [address] [address] 05/12/2021 09:39:14 05/12/2021 15:24:56 Cystocele 489374639 N81.10 Fitted for pessary today after discussing options for grade-1 cystocele. We agreed pessary non-surgic al option would be good place to start. Reviewed pessary function, insertion procedure with understand ing reviewed.R ing #4 with support placed today.Tole rated it well.Immed iate improvemen t in urine stream after device was placed.Not feeling that pressure or bulge after device placed.Lon y happy.Will call if any issues.We will order your device.You will return for f/u once your device has arrived.No other questions. Time spent in visit is a total of 32 mins with at least 50% of visit consisting of counseling and review of plan of care. Additional precaution minor measures were taken to minimize potential exposure to the Covid-19 virus during this patient s visit, including available hand rn corrections upon arrive, temperatur e check and being asked a series of screening questions. All staff wore face coverings during this encounter, as well as provided additional cleaning and sanitizing of all surfaces, including countertop s, pens, chairs, door handles, light switches, etc, prior to and following the patient s visit. [id number] [facility] [address],[facility] [place] [address] 06/03/2021 09:30:22 06/04/2021 16:20:44 Midline cystocele [id number] N81.11 see procedure notesPessa ry placedRTO at [facility] or [facility] for cleaning & check up. [id number] Dottie Mar[address] [facility] [address],[facility] [place] [address] 06/21/2021 12:02:08 06/21/2021 14:14:42 Gynecologic examination 14499389 Z01.419 Take Calcium with Vitamin D 12-1500mg daily. Do monthly self breast exams. It is advised to get annual flu shot in the fall and she could obtain at [facility] or [facility] care clinic. If you haven't received the Tdap vaccine in the last 10 years you should obtain one as well. Have mammogram yearly, bone density every 2-3 years and colonoscop y every 5-10 years depending on findings and history. Engage in daily exercise of low impact aerobic exercise 45-60 minutes 4-5 times weekly. Avoid tobacco and illicit drugs as well as using moderation with alcohol intake less than 1-2 8 oz beverages daily. This lifestyle behavior pattern will lead to less health conditions and longer life span. If BMI greater than 25 weight watchers or dietary consult advised. Questions have been answered. Patient appears to understand instructio ns, but if you have any further questions call or respond to this email Mammo done wnlPap/hpv d/c per asccp unless otherwise indicated. Dexa ordered Postmenopa usal osteopenia [id number] M85.80 Pessary care 229658489 Z 46.89 Pessary removed, cleaned & reinserted .No issues with this device.Nikky andrew was wnlRTO x 3mos for next cleaning.C an decide if wants to learn to remove/kathleen nsert herself. [id number] [facility] [address] [address] 09/19/2021 11:36:08 09/19/2021 14:58:13 Midline cystocele 598446702 N81.11 Today we refitted for pessary (#5 Ring with support).S he will return this coming saturday @ 10am for reassessme nt.Her #4 pessary was returned to her cleaned & packaged in bio bag to take home with her.Told her to bring this one back on saturday just in case we do not procceed with a larger size.We reviewed some positions that she could attempt to remove pessary if needed.Can demo this at next OV. Time spent in visit is a total of 15 mins with at least 50% of visit consisting of counseling and review of plan of care.Addit ional precaution minor measures were taken to minimize potential exposure to the Covid-19 virus during this patient s visit, including available hand rn corrections upon arrive, temperatur e check and being asked a series of screening questions. All staff wore face coverings during this encounter, as well as provided additional cleaning and sanitizing of all surfaces, including countertop s, pens, chairs, door handles, light switches, etc, prior to and following the patient s visit. [id number] [facility] [address] [address] 09/25/2021 10:42:22 09/25/2021 11:39:16 Midline cystocele [id number] N81.11 Has decided to return to pessary #4 ring with support.Th e size #5 was not painful but she felt it's presence more & did not experience this with her previous device.We cleaned & reinserted #4 pessary that she brought.Sh e will f/u x 3mos for pessary cleaning.O ffer to send referral urogyn moving forward if needed Time spent in visit is a total of 15 mins with at least 50% of visit consisting of counseling and review of plan of care.Addit ional precaution minor measures were taken to minimize potential exposure to the Covid-19 virus during this patient s visit, including available hand rn corrections upon arrive, temperatur e check and being asked a series of screening questions. All staff wore face coverings during this encounter, as well as provided additional cleaning and sanitizing of all surfaces, including countertop s, pens, chairs, door handles, light switches, etc, prior to and following the patient s visit. [id number] [address] [facility] [address],[place] [address] 01/31/2022 14:20:21 01/31/2022 15:13:17 Cystocele [id number] N81.10 Pessary removed and cleaned today with iodine (see procedure notes)Exam wnlRTO x 3mos pessary cleaning Time spent in visit is a total of 15 mins with at least 50% of visit consisting of counseling and review of plan of care. Additional precaution minor measures were taken to minimize potential exposure to the Covid-19 virus during this patient s visit, including available hand rn corrections upon arrive, temperatur e check and being asked a series of screening questions. All staff wore face coverings during this encounter, as well as provided additional cleaning and sanitizing of all surfaces, including countertop s, pens, chairs, door handles, light switches, etc, prior to and following the patient s visit. [id number] Dottie Marcos [facility] [address],[place] [address] 05/02/2022 10:26:32 05/02/2022 11:14:59 Prolapse of female genital organs [id number] N81.9 Doing well.No issues.See pessary procedure notesRTO x 3mos WWE/Pessar y cleaning. [id number] Dottie Marcos [facility] [address],[place] [address] 07/30/2022 10:44:46 07/30/2022 12:42:25 Gynecologic examination [id number] Z01.419 Take Calcium with Vitamin D 12-1500mg daily. Do monthly self breast exams. It is advised to get annual flu shot in the fall and she could obtain at [facility] or [facility]. If you haven't received the Tdap vaccine in the last 10 years you should obtain one as well. Have mammogram yearly, bone density every 2-3 years and colonoscop y every 5-10 years depending on findings and history. Engage in daily exercise of low impact aerobic exercise 45-60 minutes 4-5 times weekly. Avoid tobacco and illicit drugs as well as using moderation with alcohol intake less than 1-2 8 oz beverages daily. This lifestyle behavior pattern will lead to less health conditions and longer life span. If BMI greater than 25 weight watchers or dietary consult advised. Questions have been answered. Patient appears to understand instructio ns, but if you have any further questions call or respond to this email Pap/hpv USPSTF recommends against screening for cervical cancer in women older than 65yo, those who've had a hysterecto my for non-cancer indication s, & who have had adequate prior screening & are not otherwise at high risk for cervical cancer. STD Screen declined, not SA Genetic Screen discussed Colon Screen UTD PCP Dexa Screen Declined Routine Labs PCPMammo ordered Cystocele [id number] N81. 10 Pessary cleaning 4mos [id number] Dottie Marcos [facility] [address],[place] [address] 11/07/2022 13:45:03 11/07/2022 14:14:52 Prolapse of female genital organs [id number] N81.9 Doing well.No issues.See pessary procedure notesRTO x 3-6mos WWE/Pessar y cleaning or prn [id number] Dottie Marcos [facility] [address],[place] [address] 06/04/2023 13:43:17 06/04/2023 14:21:07 Prolapse of female genital organs [id number] N81.9 Doing well.No issues.See pessary procedure notesRTO x 6mos WWE/Pessar y cleaning or prn [id number] MOE [facility] [address],[place] [address] 11/29/2023 09:46:33 11/29/2023 10:19:03 Prolapse of female genital organs [id number] N81.9 Doing well.No issues.See pessary procedure notesRTO x 6mos/Pessa ry cleaning or prnMammo screening scheduled/ order faxed Screening mammography 24 [id number] Z12.31 faxed [id number] TIESHA SANTANA MD [facility] [address],[place] [address] 05/04/2024 09:39:12 05/04/2024 10:36:02 Prolapse of female genital organs [id number] N81.9 - pessary: displaced vertically , removed without issue; vagina normal appearing, replaced without issue- discussed q6 month pessary checks/riley anings- patient reports good support [id number] OVIDIO BLEDSOE NP [facility] [address],[place] [address] 11/30/2024 17:02:29 11/30/2024 17:54:16 Prolapse of female genital organs [id number] N81.9 Removed pessary without issue; vagina normal appearing, replaced without issuePatie nt to RTO q6 month for pessary checks/riley aningsPati ent reports good support Health Concerns Section Related Observation LastModified by Organization Detai ls LastModified Time None Recorded Concern Status LastModified by Organization Details LastModified Time None Recorded Advance Directives Directive N: Payers Encounter Date Sequence Insurance Name Policy Number Policy Leon Covered Member ID Leon Member ID Guarantor Name 11/07/2022 1 [employer] [id number] Marcella Haile [id number] Marcella Haile 06/04/2023 1 [employer] [id number] Marcella Haile [id number] Marcella Haile 11/29/2023 1 [employer] [id number] Marcella Haile [id number] Marcella Haile 05/04/2024 1 [employer] [id number] Marcella Haile [id number] Marcella Haile 11/30/2024 1 [facility] [employer] (PP[employer]) [id number] Marcella Haile [id number] Marcella Haile Notes Date Note Type Note Provider Name and Address Organization Details Recorded Time 11/07/2022 text/html Here today for pessary check & cleaning. Dottie Marcos [facility] [address], [place], [address], [facility] 11/07/2022 14:14:19 06/04/2023 text/html Here today for 6mos pessary cleaning. Dottie Marcos [facility] [address], [place], [address], [facility] 06/04/2023 14:19:05 11/29/2023 text/html Here today for 6mos pessary cleaning and exam. Dottie Marcos [facility] [address], [place], [address], [facility] 11/29/2023 10:18:45 05/04/2024 text/html Patient presents for pessary check. Patient has ring with support, #4. Reports she can no longer feel her pessary after lifting heavy boxes at work; last check and cleaning 11/29/23. No bleeding or abnormal vaginal discharge. No issues with bowel movements. Some feelings of incomplete emptying. TIESHA SANTANA MD [address], [place], [address], [facility] 05/04/2024 10:18:52 11/30/2024 text/html Patient here for pessary removal and cleaning. Patient has difficulty removing pessary herself to clean. Denies concerns with pessary, and rarely will feel device except when bearing down. OVIDIO BLEDSOE NP [address], [place], [address], [facility] 11/30/2024 17:50:29 OBGyn Episode Ob Episode Information Episode Created Date Number of Fetuses Patient Bloodtype Patient rh Status Prepregnancy Weight lbs Domestic Partner Domestic Partner Phone Father Name Wardsperson Status 06/02/20 21 1 CLOSED Fetus Data First Name Last Name Admitted to NICU Weight (g) Sex Living Outcome Pediatric Complications Fetus ID Race Codes Race Delivery Type 3345.24 1 F Full Term [id number] Vaginal Delivery Aníbal Calculation Initial Aníbal Date Initial Exam Date Initial Exam Provider Initial Ultrasound Date Last Menstrual Period Date Ultra Sound Weeks Gestation 0 Eighteen To Twenty Week Aníbal Update Ultra Sound Date Fundal Height At Umbil Quickening Date Ultra Sound Latest Weeks Gestation Final Aníbal Confirmed By Final Aníbal Confirmed Date Final Aníbal Date Ultra Sound Latest Days Gestation 0 0 Menstrual History Last Menstrual Date Menses Monthly On Bcp Conception Prior Menses Frequency Hcg Plus Date Menarche Onset Age Delivery Information Delivery Date Delivery Type Labor Anesthesia Weeks Gestation Incision Type Labor Labor Length Hrs Delivered By Post Complications Tubal Sterilization Discharge Date Comments 6 40 PIH Discharge Information Feeding Method Contraceptive Method Maternal HG B and HCT Levels Ob Episode Information Episode Created Date Number of Fetuses Patient Bloodtype Patient rh Status Prepregnancy Weight lbs Domestic Partner Domestic Partner Phone Father Name Wardsperson Status 06/02/20 21 1 CLOSED Fetus Data First Name Last Name Admitted to NICU Weight (g) Sex Living Outcome Pediatric Complications Fetus ID Race Codes Race Delivery Type 3600.15 [id number] F Full Term [id number] Vaginal Delivery Aníbal Calculation Initial Aníbal Date Initial Exam Date Initial Exam Provider Initial Ultrasound Date Last Menstrual Period Date Ultra Sound Weeks Gestation 0 Eighteen To Twenty Week Aníbal Update Ultra Sound Date Fundal Height At Umbil Quickening Date Ultra Sound Latest Weeks Gestation Final Aníbal Confirmed By Final Aníbal Confirmed Date Final Aníbal Date Ultra Sound Latest Days Gestation 0 0 Menstrual History Last Menstrual Date Menses Monthly On Bcp Conception Prior Menses Frequency Hcg Plus Date Menarche Onset Age Delivery Information Delivery Date Delivery Type Labor Anesthesia Weeks Gestation Incision Type Labor Labor Length Hrs Delivered By Post Complications Tubal Sterilization Discharge Date Comments 0 40 Discharge Information Feeding Method Contraceptive Method Maternal HG B and HCT Levels
== END 2025-01-28 16:18 | disposition home or self-care (01) ==
LOC: ANHIMG 16:18
PROVIDERS: PCP Nurse Practitioner Family; Visit Provider Nurse Practitioner Family
DX: Z12.31 Encounter for screening mammogram for malignant neoplasm of breast (principal)
CPT/HCPCS: 77063; 77067